=== PATIENT | female | born 1945 | race Caucasian/White ===

== ENCOUNTER 2019-06-15 17:26 | Observation (INO) ==
[2019-06-15] MEDS ORDERED: Acetylcysteine 5,000 MG in D5% in Water 500 ML IVC ONE (20:20)
[2019-06-15] MEDS ORDERED: Acetylcysteine 15,000 MG in D5% in Water 250 ML IVC ONE (20:47)
[2019-06-15] MEDS ORDERED: Naloxone 0.4 MG/ML INJ IVP PRN (21:03)
[2019-06-15] MEDS ORDERED: Ondansetron 4 MG/2 ML VIAL IVP PRN (21:10)
[2019-06-15 22:02] LABS: INR 1.2
[2019-06-15 22:19] LABS: Alanine Aminotransferase 16 Units/L (7-52); Albumin 3.5 g/dL (3.5-5.7); Albumin/Globulin Ratio 1.3 (1.1-2.2); Alkaline Phosphatase 128 Units/L (34-104); Aspartate Amino Transferase 23 Units/L (13-39); BUN/Creatinine Ratio 14 (6-26); Bilirubin,Total 0.9 mg/dL (0.3-1.0); Blood Urea Nitrogen 13 mg/dL (8-23); Calcium 8.8 mg/dL (8.6-10.3); Carbon Dioxide 27 mEq/L (23-29); Chloride 101 mEq/L (98-107); Globulin 2.7 g/dL (2.4-3.5); Glucose 132 mg/dL (70-105); Osmolality,Calculated 290 (280-300); Potassium 3.7 mEq/L (3.5-5.1); Sodium 139 mEq/L (136-145); Total Protein 6.2 g/dL (6.4-8.9); eGFR For African Americans > 60 (> 60); eGFR For Non-African Americans 58 (> 60)
[2019-06-15] MEDS ORDERED: D5% in Water 1,000 ML IVC PRN (22:36)
[2019-06-15] MEDS ORDERED: *HR* Dextrose 50 % in Water (Syg) 50 ML SYRINGE IVP PRN (22:36)
[2019-06-15] MEDS ORDERED: Dextrose Gel 15 GM/37.5 ML TUBE PO PRN ×2 (22:36)
[2019-06-16] MEDS ORDERED: Acetylcysteine 10,000 MG in D5% in Water 1,000 ML IVC ONE (01:00)
[2019-06-16] MEDS: Melatonin 3 MG TABLET PO PRN ×2 (01:32→21:23)
[2019-06-16] MEDS: Calamine/Zinc oxide Lotion 120 ML BOTTLE TP PRN ×2 (01:32→14:59)
[2019-06-16 01:40] LABS: Eosinophils % 0.9 %; Hemoglobin 9.2 g/dL (11.5-15.4); Immature Granulocytes % 0.4 % (0-4); Mean Platelet Volume 9.1 fL (9.4-12.4)
[2019-06-16 01:42] LABS: Basophils % 0.7 %; Eosinophils # 0.1 K/mcL (0.0-0.6); Hematocrit 31.8 % (35.3-44.9); Lymphocytes # 1.5 K/mcL (0.6-4.6); Mean Corpuscular HGB Conc 28.9 g/dL (31.6-35.5); Mean Corpuscular Hemoglobin 23.7 pg (28.0-33.3); Monocytes # 0.5 K/mcL (0.0-1.3); Monocytes % 7.9 %; Neutrophils # 3.7 K/mcL (1.6-8.9); Platelet Count 214 K/mcL (140-400); Red Blood Count 3.88 M/mcL (3.82-4.97); Red Cell Distribution Width 19.4 % (11.5-14.5); Segmented Neutrophils % 64.1 %; White Blood Count 5.7 K/mcL (4.3-11.1)
[2019-06-16 01:59] LABS: Acetaminophen < 10 mcg/mL (10-20); Alanine Aminotransferase 15 Units/L (7-52); Albumin 3.5 g/dL (3.5-5.7); Albumin/Globulin Ratio 1.3 (1.1-2.2); Alkaline Phosphatase 131 Units/L (34-104); Aspartate Amino Transferase 22 Units/L (13-39); BUN/Creatinine Ratio 13 (6-26); Blood Urea Nitrogen 13 mg/dL (8-23); Calcium 9.1 mg/dL (8.6-10.3); Carbon Dioxide 26 mEq/L (23-29); Chloride 101 mEq/L (98-107); Globulin 2.7 g/dL (2.4-3.5); Glucose 210 mg/dL (70-105); Magnesium 1.4 mg/dL (1.6-2.6); Osmolality,Calculated 292 (280-300); Phosphorous 3.5 mg/dL (2.7-4.5); Potassium 3.6 mEq/L (3.5-5.1); Sodium 138 mEq/L (136-145); Total Protein 6.2 g/dL (6.4-8.9); eGFR For African Americans > 60 (> 60); eGFR For Non-African Americans 53 (> 60)
[2019-06-16 02:27] LABS: Hypochromasia Present (Not Present); Platelet Estimate Normal (Normal)
[2019-06-16] MEDS: 0.9 % Sodium Chloride 1,000 ML IVC SCH ×2 (06:24→09:42)
[2019-06-16] MEDS: Insulin LISPRO 300 UNITS/3 ML VIAL SQ SCH ×3 (08:15→16:21)
[2019-06-16] MEDS ORDERED: NON-FORMULARY MEDICATION 1 EACH EACH (Prednisone [Prednisone] 10 MG) PO SCH (09:00)
[2019-06-16] MEDS: Magnesium Oxide 400 MG TABLET PO SCH ×2 (12:16→21:03)
[2019-06-16] MEDS: COREG PO SCH (16:20)
[2019-06-16 18:34] LABS: Acetaminophen < 10 mcg/mL (10-20); Alanine Aminotransferase 14 Units/L (7-52); Albumin 3.5 g/dL (3.5-5.7); Albumin/Globulin Ratio 1.3 (1.1-2.2); Alkaline Phosphatase 128 Units/L (34-104); Aspartate Amino Transferase 21 Units/L (13-39); Bilirubin,Direct 0.3 mg/dL (0.0-0.2); Bilirubin,Indirect 0.5 mg/dL (0.0-1.0); Bilirubin,Total 0.8 mg/dL (0.3-1.0); Globulin 2.6 g/dL (2.4-3.5); Total Protein 6.1 g/dL (6.4-8.9)
[2019-06-16] MEDS ORDERED: Insulin LISPRO 300 UNITS/3 ML VIAL SQ SCH (21:00)
[2019-06-17 01:18] LABS: Basophils % 0.5 %; Eosinophils # 0.1 K/mcL (0.0-0.6); Eosinophils % 1.4 %; Hematocrit 28.2 % (35.3-44.9); Hemoglobin 8.3 g/dL (11.5-15.4); Lymphocytes # 1.6 K/mcL (0.6-4.6); Lymphocytes % 38.8 %; Mean Corpuscular HGB Conc 29.4 g/dL (31.6-35.5); Mean Corpuscular Hemoglobin 23.8 pg (28.0-33.3); Mean Corpuscular Volume 80.8 fL (83.0-100.0); Mean Platelet Volume 9.5 fL (9.4-12.4); Monocytes # 0.5 K/mcL (0.0-1.3); Monocytes % 12.2 %; Platelet Count 165 K/mcL (140-400); Red Blood Count 3.49 M/mcL (3.82-4.97); Segmented Neutrophils % 47.1 %; White Blood Count 4.2 K/mcL (4.3-11.1)
[2019-06-17 01:45] LABS: % Iron Saturation 3 % (15-50); Alanine Aminotransferase 12 Units/L (7-52); Albumin/Globulin Ratio 1.3 (1.1-2.2); Alkaline Phosphatase 108 Units/L (34-104); Aspartate Amino Transferase 18 Units/L (13-39); BUN/Creatinine Ratio 11 (6-26); Bilirubin,Total 0.7 mg/dL (0.3-1.0); Blood Urea Nitrogen 9 mg/dL (8-23); Calcium 8.6 mg/dL (8.6-10.3); Carbon Dioxide 27 mEq/L (23-29); Chloride 104 mEq/L (98-107); Globulin 2.4 g/dL (2.4-3.5); Glucose 137 mg/dL (70-105); Iron 11 mcg/dL (50-170); Osmolality,Calculated 287 (280-300); Potassium 3.4 mEq/L (3.5-5.1); Sodium 138 mEq/L (136-145); Total Protein 5.4 g/dL (6.4-8.9); Transferrin 261 mg/dL (203-362); eGFR For African Americans > 60 (> 60); eGFR For Non-African Americans > 60 (> 60)
[2019-06-17 02:00] LABS: Ferritin 16 ng/mL (10-120)
[2019-06-17 02:05] LABS: Folate 8.1 ng/mL (3.0-16.0)
[2019-06-17] MEDS: Magnesium Oxide 400 MG TABLET PO SCH (07:28)
[2019-06-17] MEDS: COREG PO SCH (07:28)
[2019-06-17] MEDS: Insulin LISPRO 300 UNITS/3 ML VIAL SQ SCH (07:28)
[2019-06-17] MEDS ORDERED: Furosemide 20 MG TABLET PO SCH (09:00)
[2019-06-17 10:08] VITALS: BP 116/68
== END 2019-06-17 12:53 | disposition home or self-care (01) ==
LOC: INTOOBSV 19:41 → 3NENU 19:41 → SUATTDRO 19:41 → 3ANU 06-17 09:47
PROVIDERS: ADMIT Internal Medicine; ATTEND Internal Medicine

== ENCOUNTER 2019-08-01 17:38 | Observation (INO) ==
[2019-08-01] MEDS ORDERED: D5% in Water 1,000 ML IVC PRN (20:37)
[2019-08-01] MEDS ORDERED: *HR* Dextrose 50 % in Water (Syg) 50 ML SYRINGE IVP PRN (20:37)
[2019-08-01] MEDS ORDERED: Dextrose Gel 15 GM/37.5 ML TUBE PO PRN ×2 (20:37)
[2019-08-01] MEDS ORDERED: Perflutren Lipid Microsphere 1.3 ML in 0.9 % Sodium Chloride 8.7 ML IVP ONE (21:06)
[2019-08-01] MEDS: carvediloL 6.25 MG TABLET PO SCH (23:20)
[2019-08-01] MEDS: Insulin LISPRO 300 UNITS/3 ML VIAL SQ SCH (23:20)
[2019-08-02 01:34] LABS: Hemoglobin 7.7 g/dL (11.5-15.4); INR 1.2; Immature Granulocytes % 0.2 % (0-4); Prothrombin Time 13.5 Seconds (9.4-12.1); Red Cell Distribution Width 16.4 % (11.5-14.5)
[2019-08-02 01:36] LABS: Activated Partial Thrombo Time 30.4 Seconds (26.0-36.0); Basophils % 0.4 %; Eosinophils # 0.1 K/mcL (0.0-0.6); Eosinophils % 1.3 %; Hematocrit 25.7 % (35.3-44.9); Lymphocytes # 1.2 K/mcL (0.6-4.6); Lymphocytes % 26.2 %; Mean Corpuscular Hemoglobin 23.5 pg (28.0-33.3); Mean Corpuscular Volume 78.6 fL (83.0-100.0); Mean Platelet Volume 9.9 fL (9.4-12.4); Monocytes # 0.5 K/mcL (0.0-1.3); Monocytes % 11.7 %; Neutrophils # 2.8 K/mcL (1.6-8.9); Platelet Count 185 K/mcL (140-400); Red Blood Count 3.27 M/mcL (3.82-4.97); Segmented Neutrophils % 60.2 %; White Blood Count 4.6 K/mcL (4.3-11.1)
[2019-08-02 01:51] LABS: Troponin I 0.05 ng/mL (< 0.04)
[2019-08-02 02:42] LABS: Hypochromasia Present (Not Present); Platelet Estimate Normal (Normal)
[2019-08-02 04:49] LABS: Estimated Average Glucose 160 mg/dl
[2019-08-02] MEDS ORDERED: *HR* Heparin 5,000 UNIT/ML VIAL SQ SCH (06:00)
[2019-08-02 06:03] LABS: Alanine Aminotransferase 20 Units/L (7-52); Albumin 2.8 g/dL (3.5-5.7); Albumin/Globulin Ratio 1.1 (1.1-2.2); Alkaline Phosphatase 163 Units/L (34-104); Aspartate Amino Transferase 35 Units/L (13-39); BUN/Creatinine Ratio 28 (6-26); Bilirubin,Total 0.6 mg/dL (0.3-1.0); Blood Urea Nitrogen 27 mg/dL (8-23); Calcium 8.1 mg/dL (8.6-10.3); Carbon Dioxide 25 mEq/L (23-29); Chloride 103 mEq/L (98-107); Chol/HDL Ratio 2.7 (0-4.9); Cholesterol 117 mg/dL (< 200); Globulin 2.5 g/dL (2.4-3.5); Glucose 197 mg/dL (70-105); HDL Cholesterol 44 mg/dL (40-59); LDL Cholesterol,Calculated 59 mg/dL (0-99); Osmolality,Calculated 295 (280-300); Potassium 3.8 mEq/L (3.5-5.1); Sodium 137 mEq/L (136-145); Total Protein 5.3 g/dL (6.4-8.9); Triglycerides 70 mg/dL (< 150); eGFR For African Americans > 60 (> 60); eGFR For Non-African Americans 55 (> 60)
[2019-08-02 06:10] LABS: Thyroid Stimulating Hormone 0.545 mcIU/mL (0.340-5.600)
[2019-08-02 06:37] VITALS: BP 115/66
[2019-08-02] MEDS: Insulin LISPRO 300 UNITS/3 ML VIAL SQ SCH (07:45)
[2019-08-02] MEDS: carvediloL 6.25 MG TABLET PO SCH (07:46)
[2019-08-02] MEDS ORDERED: Aspirin 81 MG TAB.CHEW PO SCH (09:00)
== END 2019-08-02 13:34 | disposition home health service (06) ==
LOC: 2ANU → SUATTDRO 19:01
PROVIDERS: ADMIT Internal Medicine; ATTEND Internal Medicine